=== PATIENT | female | born 1995 | race Caucasian/White ===

== ENCOUNTER 2017-02-06 20:45 | Emergency (ER) | payer OTHER ==
[2017-02-06 20:56] VITALS: BP 122/68
--- NOTE | 2017-02-06 21:00 | UC ---
Nausea/Vomiting/Diarrhea HPI - HPI Summary HPI Summary: 21 year old female who is 7 week presents with complains of nausea/ vomiting. - History of Current Complaint Chief Complaint: UCGeneralIllness Stated Complaint: LIGHT HEADED, NAUSEA Time Seen by Provider: 02/06/17 20:59 Hx Obtained From: Patient Hx Last Menstrual Period: 12/15/13 Onset/Duration: Sudden Onset Severity Initially: Moderate Severity Currently: Moderate - Allergies/Home Medications Allergies/Adverse Reactions: Allergies Allergy/AdvReac Type Severity Reaction Status Date / Time No Known Allergies Allergy Verified 02/06/17 20:50 Home Medications: Home Medications Vitamin [Calna] 1 tab DAILY 02/06/17 [History Confirmed 02/06/17] PMH/Surg Hx/FS Hx/Imm Hx Previously Healthy: Yes - Surgical History Surgical History: None - Family History Known Family History: Negative: Diabetes - Social History Alcohol Use: None Substance Use Type: None Smoking Status (MU): Never Smoked Tobacco - Immunization History Most Recent Influenza Vaccination: 2016 Vaccination Up to Date: Yes Review of Systems Constitutional: Negative Skin: Negative Eyes: Negative ENT: Negative Respiratory: Negative Cardiovascular: Negative Gastrointestinal: Vomiting, Nausea Genitourinary: Negative Motor: Negative Neurovascular: Negative Musculoskeletal: Negative Neurological: Negative Psychological: Negative All Other Systems Reviewed And Are Negative: Yes Physical Exam Triage Information Reviewed: Yes Vital Signs: Initial Vital Signs Temp 36.9 C 02/06/17 20:51 Pulse 87 02/06/17 20:51 Resp 16 02/06/17 20:51 BP 122/68 02/06/17 20:51 Pulse Ox 100 02/06/17 20:51 Vital Signs Reviewed: Yes Eye Exam: Normal ENT Exam: Normal Dental Exam: Normal Neck exam: Normal Neck: Positive: 1 Respiratory Exam: Normal Cardiovascular Exam: Normal Abdominal Exam: Normal Musculoskeletal Exam: Normal Neurological Exam: Normal Psychological Exam: Normal Skin Exam: Normal Naus/Vom/Diarrhea Course/Dx - Differential Dx/Diagnosis Provider Diagnoses: nausea. vomiting. 7 weeks Condition At Discharge: Stable Discharge - Discharge Plan Condition: Stable Disposition: OTHER Discharge Disposition Comment: patient suggested to go to er for severe nausea and vomitting Patient Education Materials: Nausea and Vomiting in (ED) Referrals: Rae Huffman PA [Physician [employer] Consultant] - Additional Instructions: patient suggested to got to the er.
== END 2017-02-06 21:10 ==
LOC: UCCORT 20:45
DX: O21.9 Vomiting of pregnancy, unspecified (principal); Z3A.01 Less than 8 weeks gestation of pregnancy
CPT/HCPCS: 99212; G0463

== ENCOUNTER 2017-03-23 11:10 | Emergency (ER) | payer BC, OTHER ==
[2017-03-23 12:18] VITALS: BP 126/66
--- NOTE | 2017-03-23 13:16 | UC ---
FLU HPI - HPI Summary HPI Summary: headaches and low grade temps for 1 week sinus and ears feel congested - History of Current Complaint Chief Complaint: UCGeneralIllness Stated Complaint: HEADACHE, FEVER Time Seen by Provider: 03/23/17 13:15 Hx Obtained From: Patient Hx Last Menstrual Period: 12/15/13 ?: No Onset/Duration: Sudden Onset, Lasting Days, Still Present Severity Currently: Moderate Severity Initially: Moderate Pain Intensity: 6 Pain Scale Used: 0-10 Numeric Associated Signs & Symptoms: Positive: Fever, Myalgia, Nasal Congestion, Headache - Allergy/Home Medications Allergies/Adverse Reactions: Allergies Allergy/AdvReac Type Severity Reaction Status Date / Time No Known Allergies Allergy Verified 03/23/17 12:13 PMH/Surg Hx/FS Hx/Imm Hx Previously Healthy: Yes - Surgical History Surgical History: None - Family History Known Family History: Negative: Diabetes - Social History Occupation: Employed Full-time Lives: With Family Alcohol Use: None Substance Use Type: None Smoking Status (MU): Never Smoked Tobacco - Immunization History Most Recent Influenza Vaccination: 2016 (2 weeks ago approx 03/09/17) Vaccination Up to Date: Yes Review of Systems Constitutional: Fever, Chills, Fatigue Skin: Negative Eyes: Negative ENT: Ear Ache, Sinus Congestion, Sinus Pain/Tenderness Respiratory: Negative Cardiovascular: Negative Gastrointestinal: Negative Genitourinary: Negative Motor: Negative Neurovascular: Negative Musculoskeletal: Negative Neurological: Headache Psychological: Negative Is Patient Immunocompromised?: No All Other Systems Reviewed And Are Negative: Yes Physical Exam Triage Information Reviewed: Yes Appearance: Well-Appearing - states she has a "migrane headache" is sitting upright texting with lights on in the room, No Pain Distress, Well-Nourished Vital Signs: Initial Vital Signs Temp 98.1 F 03/23/17 12:13 Pulse 100 03/23/17 12:13 Resp 16 03/23/17 12:13 BP 126/66 03/23/17 12:13 Pulse Ox 100 03/23/17 12:13 Eye Exam: Normal ENT Exam: Normal ENT: Positive: Normal ENT inspection, Hearing grossly normal, Pharynx normal, Nasal congestion, TM dull - left, Sinus tenderness, Uvula midline. Negative: Nasal drainage, Trismus, Muffled voice, Hoarse voice, Dental tenderness Dental Exam: Normal Neck exam: Normal Neck: Positive: Supple, Nontender, No Lymphadenopathy Respiratory Exam: Normal Respiratory: Positive: Chest non-tender, Lungs clear, Normal breath sounds, No respiratory distress, No accessory muscle use Cardiovascular Exam: Normal Cardiovascular: Positive: RRR, No Murmur, Pulses Normal, Brisk Capillary Refill Musculoskeletal Exam: Normal Musculoskeletal: Positive: Strength Intact, ROM Intact, No Edema Neurological Exam: Normal Neurological: Positive: Alert, Muscle Tone Normal Psychological Exam: Normal Skin Exam: Normal Diagnostics - Laboratory Diagnostic Studies Completed/Ordered: ua-WNL-- Flu Course/Dx - Course Course Of Treatment: nasal rince, flonase may start antibiodic after 10 days of symptoms or if fever or symptoms worsen, follow with pcp - Differential Dx/Diagnosis Provider Diagnoses: Rhinosinusitis, Discharge - Discharge Plan Condition: Stable Disposition: HOME Prescriptions: Amoxicillin PO (*) [Amoxicillin 875 MG (*)] 875 mg PO BID #20 tab Fluticasone NASAL SPRAY 50MCG* [Flonase NASAL SPRAY 50MCG*] 2 spray BOTH NARES DAILY #1 btl Patient Education Materials: Sodium Chloride (Into the nose), Rhinosinusitis ( ED), How to Use Nasal [place] (ED) Forms: *Work Release Referrals: Annabella Quintero MD [Primary Care Provider] - If Needed Juany Lucero MD [Medical Doctor] - 1 Week
== END 2017-03-23 14:08 | disposition home or self-care (01) ==
LOC: UCCORT 11:10
DX: O99.519 Diseases of the respiratory system complicating pregnancy, unspecified trimester (principal); J32.9 Chronic sinusitis, unspecified; Z3A.00 Weeks of gestation of pregnancy not specified
CPT/HCPCS: 81003; 87502; 99212; G0463

== ENCOUNTER 2017-05-11 18:02 | Emergency (ER) | payer BC ==
[2017-05-11 18:29] VITALS: BP 124/64
--- NOTE | 2017-05-11 19:08 | UC ---
Throat Pain/Nasal Eliseo HPI - HPI Summary HPI Summary: C/O sore throat with congestion and headache for 2 days. - History of Current Complaint Chief Complaint: UCGeneralIllness Stated Complaint: SORE THROAT,SINUSES Time Seen by Provider: 05/11/17 19:01 Hx Last Menstrual Period: 12/15/13 ?: Yes - 21 weeks. Onset/Duration: Sudden Onset, Lasting Days - 2, Still Present Severity: Moderate Pain Intensity: 9 Cough: None Associated Signs & Symptoms: Positive: Sinus Discomfort, Nasal Discharge Related History: Seasonal Allergies - Allergies/Home Medications Allergies/Adverse Reactions: Allergies Allergy/AdvReac Type Severity Reaction Status Date / Time No Known Allergies Allergy Verified 05/11/17 18:29 PMH/Surg Hx/FS Hx/Imm Hx Previously Healthy: Yes - Surgical History Surgical History: None - Family History Known Family History: Positive: Hypertension, Diabetes Negative: Cardiac Disease - Social History Occupation: Employed Full-time Lives: With Family Alcohol Use: None Substance Use Type: None Smoking Status (MU): Never Smoked Tobacco Have You Smoked in the Last Year: No - Immunization History Most Recent Influenza Vaccination: 2016 (2 weeks ago approx 03/09/17) Vaccination Up to Date: Yes Review of Systems ENT: Sore Throat, Nasal Discharge, Sinus Congestion, Sinus Pain/Tenderness Is Patient Immunocompromised?: No All Other Systems Reviewed And Are Negative: Yes Physical Exam Triage Information Reviewed: Yes Appearance: No Pain Distress, Well-Nourished, Ill-Appearing - mild Vital Signs: Initial Vital Signs Temp 98.3 F 05/11/17 18:24 Pulse 105 05/11/17 18:24 Resp 16 05/11/17 18:24 BP 124/64 05/11/17 18:24 Pulse Ox 100 05/11/17 18:24 Vital Signs Reviewed: Yes Eyes: Positive: Conjunctiva Clear ENT: Positive: Pharynx normal, Nasal congestion, TMs normal Neck exam: Normal Respiratory Exam: Normal Cardiovascular Exam: Normal Musculoskeletal Exam: Normal Neurological Exam: Normal Psychological Exam: Normal Skin Exam: Normal Throat Pain/Nasal Course/Dx - Differential Dx/Diagnosis Differential Diagnosis/HQI/PQRI: Influenza, Pharyngitis, Sinusitis, URI Provider Diagnoses: Acute URI. Acute sinusitis Discharge - Discharge Plan Condition: Stable Disposition: HOME Prescriptions: Amoxicillin PO (*) [Amoxicillin 875 MG (*)] 875 mg PO BID #20 tab Patient Education Materials: Upper Respiratory Infection (ED), Sinusitis (ED), Amoxicillin (By mouth) Referrals: Annabella Quintero MD [Primary Care Provider] - Additional Instructions: NASAL SPRAYS AND DROPS: Afrin in the PUMP/ MIST bottle (Get generic 12 hours nasal decongestant spray). Tilt your head down and look at the floor while doing a strong sniff with the spray. Decongestant nasal sprays and drops often give dramatic relief from congestion. They are often recommended for patients with sinus infection to assist with sinus drainage. Persons with high blood pressure should consult the doctor before using these nasal sprays. Afrin and Guero-Synephrine are common tazo-ryq-msdkehn preparations. They should not be used for more than five days, as "rebound" congestion can occur - - the congestion flares as the drug wears off. A way of dealing with this rebound congestion problem is to medicate only one nostril each time, allowing the other nostril to recover from the medicine' s effects. When you no longer need the drug during the day, spray only one nostril each night. This helps you sleep well without severe rebound congestion. Call the doctor if you develop severe headache, palpitations, or chest pain.
[2017-05-11] MEDS ORDERED: Amoxicillin PO (*) 500 MG CAP PO ONE (19:11)
== END 2017-05-11 19:23 | disposition home or self-care (01) ==
LOC: UCCORT 18:02
DX: O26.892 Other specified pregnancy related conditions, second trimester (principal); Z3A.21 21 weeks gestation of pregnancy; J06.9 Acute upper respiratory infection, unspecified; J01.90 Acute sinusitis, unspecified
CPT/HCPCS: 99212; A9270-GY; G0463

== ENCOUNTER 2018-05-05 08:28 | Emergency (ER) | payer BC, OTHER ==
--- OUTSIDE RECORDS SUMMARY | 2018-05-05 08:40 | XMS REPORT | Continuity of Care Document ---
:1995 External Reference #:[id number] Author Name Leia Hicks PNP-BC, OSWALD, Ibclc Address [address] [place] [address] Care Team Providers Name Role Phone Leia Hicks PNP-BC, OSWALD, Tia Care Team Information Beer Cooler Unavailable Leia Hicks PNP-BC, OSWALD, Ibclc Primary Care Physician Unavailable Payers Date Identification Numbers Payment Provider Subscriber Policy Number: [id number] [facility] Anjelica Hammer PayID: [id number] [address] [place] [address] Advance Directives Description No Information Available Problems Description No Information Family History Date Family Member(s) Observation Comments General Depression General Diabetes General Hypertension General Thyroid Disease Mother Hypertension Maternal Grandmother Type 2 Diabetes Mellitus Maternal Grandmother Hypothyroidism Social History Type Date Description Comments Sex Unknown Marital Status Single Lives With Boyfriend Lives With Daughter Diet Patient follows no dietary restrictions Occupation Currently Working ADL's/IADL's Independent with all ADL's ADL's/IADL's Independent with all IADL's ETOH Use Denies alcohol use Tobacco Use Start: Unknown Patient denies history of smoking Recreational Drug Use Denies Drug Use Smoking Status Reviewed: 04/30/18 Patient denies history of smoking Allergies, Adverse Reactions, Alerts Description No Known Drug Allergies Medications Medication Date Status Form Strength Qnty SIG Indications Ordering Provider Loestrin 04/06 Active Tablets 1-20mg-mcg 105tab as Z30.011 Fabiola, (21) 019 s directed LUX Dupree, OSWALD, Ibclc Prozac Active Capsules 20mg 30caps 1 by mouth F33.1 Fabiola, Nadya every day LUX Dupree, NEON TUBE PUMPER, Ibclc No Active Hx Unknown Medications 019 - 019 Immunizations Description No Information Available Vital Signs Date Vital Result Comment 04/30/2018 9:33am BP Systolic 112 mmHg BP Diastolic 84 mmHg Body Temperature 98.9 F Heart Rate 112 /min Respiratory Rate 18 /min Height 64 inches 5'4" Weight 220.00 lb BMI (Body Mass Index) 37.8 kg/m2 BSA (Body Surface Area) 2.04 m2 [place] body weight in kilograms 54 kg O2 % BldC Oximetry 98 % Results Description No Information Available Procedures Date Code Description Status 04/30/2018 47355 Brief Emotional/Behav Assessment W/ Scoring Doc Per Completed Standard Inst Encounters Type Date Location Provider Dx Diagnosis Office Visit 04/30/2018 [facility] Leia Hciks, F33.1 Major depressive 9:45a [facility] OSWALD WASSERMAN, disorder, Ibclc recurrent, moderate Z30.011 Encounter for initial prescription of contraceptive pills Plan of Treatment Future Appointment(s):05/28/2018 8:45 am - Leia Hicks PNP-BC, OSWALD, Ibclc at [facility]04/30/2018 - Leia Hicks PNP-BC, OSWALD, AyrdcF03.1 Major depressive disorder, recurrent, moderateNew Medication:Prozac 20 mg - 1 by mouth every dayComments:I would suggest trying to find a counselor that may help as well. any concerns/questions, things getting worse or new concerns let me know.Follow up:1 [id number] Encounter for initial prescription of contraceptive pillsNew Medication:Loestrin 04/06 (21) 1-20 mg-mcg - as directed
[2018-05-05 08:47] VITALS: BP 133/91
[2018-05-05] MEDS ORDERED: Ketorolac INJ* 30 MG/ML 1 ML VIAL IM ONE (09:36)
--- NOTE | 2018-05-05 09:59 | UC ---
Complaint Female HPI - HPI Summary HPI Summary: 22 year old female presents with 2 day history of left flank pain, suprapubic pressure, and urinary frequency. Describes as a constant, "sharp" pain that waxes and wanes in intesity. Associated with some chills and nausea. Denies fever, vomiting, diarrhea, burning with urination, frequency, hematuria, vaginal discharge, or abnormal bleeding. Mother with history of kidney stones. LMP 1 week ago. - History Of Current Complaint Chief Complaint: UCGU Stated Complaint: URINARY W/BACK PAIN Time Seen by Provider: 05/05/18 08:37 Hx Obtained From: Patient Hx Last Menstrual Period: 04/28/18 Pain Intensity: 8 - Allergies/Home Medications Allergies/Adverse Reactions: Allergies Allergy/AdvReac Type Severity Reaction Status Date / Time No Known Allergies Allergy Verified 05/11/17 18:29 Home Medications: Home Medications Fluoxetine HCl [Prozac] 20 mg PO BEDTIME 05/05/18 [History Confirmed 05/05/18] Norethindrone AC-Eth Estradiol [Loestrin 1-20 mg-Mcg] 1 tab PO BEDTIME 05/05/18 [History Confirmed 05/05/18] PMH/Surg Hx/FS Hx/Imm Hx Previously Healthy: Yes Psychological History: Anxiety, Depression - Surgical History Surgical History: Yes Surgery Procedure, Year, and Place: 2018-- - Family History Known Family History: Positive: Hypertension, Diabetes Negative: Cardiac Disease - Social History Occupation: Employed Full-time Lives: Alone Alcohol Use: Rare Substance Use Type: None Smoking Status (MU): Never Smoked Tobacco Have You Smoked in the Last Year: No - Immunization History Most Recent Influenza Vaccination: 2017 (2 weeks ago approx 03/09/17) Vaccination Up to Date: Yes Review of Systems All Other Systems Reviewed And Are Negative: Yes Constitutional: Negative: Fever, Chills Skin: Negative: Rash Respiratory: Negative: Shortness Of Breath, Cough Cardiovascular: Negative: Palpitations, Chest Pain Gastrointestinal: Positive: Abdominal Pain, Nausea. Negative: Vomiting, Diarrhea Genitourinary: Positive: Urgency. Negative: Dysuria, Hematuria, Frequency, Vaginal/Penile Discharge, Abnormal Bleeding Musculoskeletal: Positive: Negative Neurological: Positive: Negative Is Patient Immunocompromised?: No Physical Exam - Summary Physical Exam Summary: GENERAL APPEARANCE: Well developed, well nourished, alert and cooperative, and appears to be in no acute distress. CARDIAC: Normal S1 and S2. No S3, S4 or murmurs. Rhythm is regular. There is no peripheral edema, cyanosis or pallor. Extremities are warm and well perfused. Capillary refill is less than 2 seconds. LUNGS: Clear to auscultation without rales, rhonchi, wheezing or diminished breath sounds. ABDOMEN: Positive bowel sounds. Soft, nondistended, nontender. No guarding or rebound. No masses or hepatosplenomegally. Mild left CVA tenderness. MUSKULOSKELETAL: ROM intact to all extremities. No joint erythema or tenderness. Normal muscular development. Normal gait. BACK: Examination of the spine reveals normal gait and posture, no spinal deformity or tenderness, decreased range of motion or muscular spasm. SKIN: Skin normal color, texture and turgor with no lesions or eruptions. Triage Information Reviewed: Yes Vital Signs: Initial Vital Signs Temp 98.1 F 05/05/18 08:43 Pulse 82 05/05/18 08:43 Resp 20 05/05/18 08:43 BP 133/91 05/05/18 08:43 Pulse Ox 100 05/05/18 08:43 Vital Signs Reviewed: Yes Diagnostics - Laboratory Diagnostic Studies Completed/Ordered: POC UA 1+ protein, 3+ blood. Urine negative. - Radiology No standard instances Radiology Interpretation Completed By: Radiologist Summary of Radiographic Findings: Patient Name: JOYCE STEVENS Medical Record#: [id number]. Ordering Physician: Jett Tamez NP Acct.#: [id number]. : 1995 Age: 22 Sex: F Location: [facility]. Exam Date: 05/05/18908 ADM Status: REG ER. Order Information: CT ABD/PEL W/ O. Accession Number: [id number]. CPT: 22229. INDICATION: LEFT flank pain. Hematuria. Nausea. COMPARISON: No relevant prior exams available on the [facility] PACS for comparison. TECHNIQUE: Multidetector CT images were obtained from the lung bases to the ischial. tuberosities. No oral contrast administered. Assessment of the visceral limited without. IV contrast. Multiplanar reformation. REPORT: VISUALIZED INFERIOR THORAX: Unremarkable visualized inferior thorax. LIVER / GALLBLADDER / PANCREAS / SPLEEN: Unremarkable unenhanced liver, gallbladder,. pancreas, and upper normal size spleen. ALIMENTARY TRACT: Negative for CT abnormality of the upper GI, small bowel, retrocecal. appendix, or colon. Moderate stool present throughout the colon. Negative for ascites,. free air, hernias. MESENTERIC: Unremarkable. ADRENAL / GENITOURINARY: Normal adrenal glands. Unremarkable RIGHT kidney and ureter. Mild. LEFT hydronephrosis is traced to a 0.45 cm maximum dimension ureteral vesicular junction. stone. The partially distended urinary bladder is also otherwise unremarkable. Unremarkable anteverted uterus and adnexal regions. RETROPERITONEAL: Negative for lymphadenopathy. VASCULAR: Unremarkable abdominal aorta and normally distended IVC. BONES: Hypertrophic facet arthropathy L5-S1 on the RIGHT results in mild foraminal stenosis. Negative for suspicious focal osseous lesions. SOFT TISSUE: Unremarkable. IMPRESSION: #. Mild LEFT hydronephrosis is traced to a 0.45 cm maximum dimension ureteral vesicular. junction stone. Complaint Female Dx - Course Course Of Treatment: 22 year old female presents with 2 day history of left flank pain, suprapubic pressure, and urinary frequency. Describes as a constant , "sharp" pain that waxes and wanes in intesity. Associated with some chills and nausea. Denies fever, vomiting, diarrhea, burning with urination, frequency , hematuria, vaginal discharge, or abnormal bleeding. Mother with history of kidney stones. LMP 1 week ago. Afebrile. VSS. Exam reveals a young adult female who appears uncomfortable but in no acute distress. Mild left CVA tenderness. No abdominal tenderness. Remainder of exam unremarkable. POC UA 1+ protein, 3+ blood. Negative urine . CT abd/pelv w/o shows 4 mm calculi at the ureteral vesicular junction with mild hydronephrosis. Patient was given ketoralac 30 mg IM for pain in the clnic. Will start her on medical expulsive therapy with tamsulosin 0.4 mg daily and provide her with prescriptions for ibuprofen as needed for pain and odansetron as needed for N/V. She is to follow up with urology in 5 days. Instructed to strain urine and take stone with her to appointment if she passes it. Anticipatory guidance and warning symptoms reviewed with the patient. Verbalizes understanding and agrees with POC. - Differential Dx/Diagnosis Differential Diagnosis/HQI/PQRI: Ectopic, , Renal Colic, Ureteral Stone , Urinary Tract Infection Provider Diagnosis: Renal calculus, left Discharge - Sign-Out/Discharge Documenting (check all that apply): Patient Departure All imaging exams completed and their final reports reviewed: Yes - Discharge Plan Condition: Stable Disposition: HOME Prescriptions: Ibuprofen TAB* [Motrin TAB* 600 MG] 600 mg PO Q8H PRN #30 tab PRN Reason: Pain Ondansetron [Ondansetron Odt] 4 mg PO Q8HR PRN #6 tab.rapdis PRN Reason: Nausea/Vomiting Tamsulosin CAP* [Flomax CAP*] 0.4 mg PO DAILY #14 cap Patient Education Materials: Kidney Stones (ED) Referrals: Leia Hicks NP [Primary Care Provider] - Ry Espino MD [Medical Doctor] - 5 Days (Call for appointment.) Additional Instructions: The CT scan performed in the clinic today showed a 4 mm kidney stone at the junction where the ureter and bladder join as well as some mild swelling around the kidney (hydronephrosis). You will likely pass the stone without complication. Take tamsulosin 0.4 mg 1 tab daily until you pass the stone. This medication can lower your blood pressure so change positions slowly and make sure you are not dizzy before you start walking to avoid falling. Use ibuprofen 600 mg 1 tab every 8 hours as needed for pain. Use ondansetron 4 mg 1 tab every 8 hours as needed for nausea or vomiting. Drink plenty of fluids. Strain the urine as instructed. If you pass the stone place it in the collection container provided and bring it with you to your appointment with urology. Follow up with urology within 5 days. Call for an appointment. Seek immediate medical attention in the emergency room if you have worsening pain despite taking pain medication, have persistent vomiting, develop fever greater than 100.5 F, or any worsening of symptoms. - Billing Disposition and Condition Condition: STABLE Disposition: Home
== END 2018-05-05 10:15 | disposition home or self-care (01) ==
LOC: UCCORT 08:28
DX: N20.0 Calculus of kidney (principal); N13.30 Unspecified hydronephrosis; F41.9 Anxiety disorder, unspecified; F32.9 Major depressive disorder, single episode, unspecified; Z79.899 Other long term (current) drug therapy
CPT/HCPCS: 74176; 81003; 84702; 96372; 99212; G0463; J1885